=== PATIENT | female | born 1995 | race Caucasian/White ===

== ENCOUNTER 2019-02-07 10:46 | Inpatient (IN) | payer BC ==
[2019-02-07] MEDS ORDERED: LIDOCAINE 1% (MPF) 30 ML INJ INJ ×2 (11:30)
[2019-02-07] MEDS ORDERED: METHYLERGONOVINE 0.2 MG INJ IM ×2 (11:30)
[2019-02-07] MEDS ORDERED: CARBOPROST 250 MCG INJ IM ×2 (11:30)
[2019-02-07] MEDS ORDERED: MISOPROSTOL 200 MCG TAB PR ×2 (11:30)
[2019-02-07] MEDS ORDERED: OXYTOCIN 30 UNITS/LR 500 ML IV ×6 (11:30)
[2019-02-07] MEDS ORDERED: BUTORPHANOL 2 MG INJ IV ×2 (11:30)
[2019-02-07] MEDS: LACTATED RINGER'S 1,000 ML IV ×2 (12:10→23:04)
[2019-02-07] MEDS: MAGNESIUM SULFATE 4 GM/100 ML 100 ML IV (12:11)
[2019-02-07 12:25] LABS: ADD UMIC YES; UR ASCORBIC ACID NEGATIVE (NEGATIVE); UR BILIRUBIN (Dip) NEGATIVE (NEGATIVE); UR BLOOD (Dip) NEGATIVE (NEGATIVE); UR CLARITY SLIGHTLY CLOUDY (CLEAR); UR COLOR YELLOW (YELLOW); UR GLUCOSE (Dip) NEGATIVE (NEGATIVE); UR KETONES (Dip) NEGATIVE (NEGATIVE); UR LEUKOCYTE ESTERASE (Dip) TRACE Leu/ul (NEGATIVE); UR NITRITE (Dip) NEGATIVE (NEGATIVE); UR RBC 0 /HPF (0-5); UR SQUAMOUS EPITHELIAL CELL FEW /HPF (FEW); UR TOTAL PROTEIN (Dip) 1+ mg/dl (NEGATIVE); UR UROBILINOGEN (Dip) NEGATIVE (NEGATIVE); UR WBC 2 /HPF (0-5)
[2019-02-07 12:27] LABS: ADD MAN DIFF? NO
[2019-02-07 12:28] LABS: BASOPHIL # 0.1 10^3/ul (0.0-0.1); BASOPHILS % 0.6 % (0.0-2.0); EOSINOPHILS % 0.3 % (0.0-7.0); HEMATOCRIT 38.2 % (37.0-47.0); LYMPHOCYTES # 1.4 10^3/ul (0.8-2.9); LYMPHOCYTES % 13.9 % (15.0-51.0); MEAN CORPUSCULAR HEMOGLOBIN 29.1 pg (29.0-33.0); MEAN CORPUSCULAR VOLUME 85.7 fl (82.0-101.0); MEAN PLATELET VOLUME 10.9 fl (7.4-10.4); MONOCYTE # 0.5 10^3/ul (0.3-0.9); NEUTROPHIL # 7.8 10^3/ul (1.6-7.5); NEUTROPHILS % 79.5 % (39.0-77.0); PLATELET COUNT 216 10^3/UL (140-415); RED BLOOD COUNT 4.46 10^6/ul (4.20-5.40); RED CELL DISTRIBUTION WIDTH 13.2 % (11.5-14.5)
[2019-02-07 12:28] LABS: WHITE BLOOD COUNT 9.8 10^3/ul (4.8-10.8)
[2019-02-07] MEDS: MAGNESIUM SULFATE 20 GM/500 ML 500 ML IV ×2 (12:34→23:05)
[2019-02-07 12:47] LABS: INR 0.86; PROTIME 11.8 Sec (11.9-14.9); PT RATIO 0.9
[2019-02-07 12:48] LABS: PARTIAL THROMBOPLASTIN TIME 27.8 Sec (23.0-35.0)
[2019-02-07 12:53] LABS: URIC ACID 5.4 mg/dl (3.1-7.9)
[2019-02-07 12:54] LABS: ALANINE AMINOTRANSFERASE 21 IU/L (13-69); ALBUMIN 3.7 g/dl (3.3-4.9); ALBUMIN/GLOBULIN RATIO 1.23; ALKALINE PHOSPHATASE 162 IU/L (42-121); ANION GAP 5 (5-13); ASPARTATE AMINO TRANSFERASE 21 IU/L (15-46); BILIRUBIN,INDIRECT 0.4 mg/dl (0-1.1); BILIRUBIN,TOTAL 0.4 mg/dl (0.2-1.3); BLOOD UREA NITROGEN 7 mg/dl (7-20); CALCIUM 9.6 mg/dl (8.4-10.2); CARBON DIOXIDE 25 mmol/L (21-31); CHLORIDE 107 mmol/L (97-110); CREATININE 0.54 mg/dl (0.44-1.00); Estimated GFR > 60 mL/min (>60); GLUCOSE 77 mg/dl (70-220); POTASSIUM 4.1 mmol/L (3.5-5.1); SODIUM 137 mmol/L (135-144); TOTAL PROTEIN 6.7 g/dl (6.1-8.1)
[2019-02-07 13:24] LABS: HEPATITIS B SURFACE ANTIGEN NEGATIVE (NEGATIVE)
[2019-02-07] MEDS: MISOPROSTOL 50 MCG CAPSULE PO (13:36)
[2019-02-07 14:46] LABS: MAGNESIUM 1.9 mg/dl (1.7-2.5)
[2019-02-07] MEDS ORDERED: hydrALAzine 20 MG INJ (15:20)
[2019-02-07 15:24] LABS: RAPID PLASMA REAGIN NONREACTIVE (NR)
[2019-02-07] MEDS: hydrALAzine 20 MG INJ IV (15:24)
[2019-02-07 17:53] LABS: CREATININE,URINE RANDOM 37.73 mg/dl (20-320); PROTEIN/CREAT RATIO 1.66 RATIO
[2019-02-07 18:37] LABS: MAGNESIUM 4.8 mg/dl (1.7-2.5)
[2019-02-07] MEDS ORDERED: hydrALAzine 20 MG INJ IV (19:30)
[2019-02-07] MEDS: OXYTOCIN 30 UNITS/LR 500 ML IV (20:58)
[2019-02-07] MEDS: ACETAMINOPHEN 325 MG TAB PO (23:04)
[2019-02-08 03:34] LABS: ADD MAN DIFF? NO
[2019-02-08 03:54] LABS: INR 0.98; PROTIME 13.1 Sec (11.9-14.9)
[2019-02-08 03:55] LABS: PARTIAL THROMBOPLASTIN TIME 27.4 Sec (23.0-35.0)
[2019-02-08 04:01] LABS: WHITE BLOOD COUNT 15.2 10^3/ul (4.8-10.8)
[2019-02-08 04:01] LABS: BASOPHILS % 0.2 % (0.0-2.0); EOSINOPHILS % 0.1 % (0.0-7.0); HEMOGLOBIN 12.5 g/dl (12.0-16.0); LYMPHOCYTES % 6.7 % (15.0-51.0); MEAN CORPUSCULAR HEMOGLOBIN 29.8 pg (29.0-33.0); MEAN CORPUSCULAR HGB CONC 34.7 g/dl (32.0-37.0); MEAN CORPUSCULAR VOLUME 85.9 fl (82.0-101.0); MEAN PLATELET VOLUME 11.1 fl (7.4-10.4); MONOCYTE # 0.7 10^3/ul (0.3-0.9); MONOCYTES % 4.7 % (0.0-11.0); NEUTROPHIL # 13.3 10^3/ul (1.6-7.5); NEUTROPHILS % 87.7 % (39.0-77.0); PLATELET COUNT 224 10^3/UL (140-415); RED BLOOD COUNT 4.19 10^6/ul (4.20-5.40); RED CELL DISTRIBUTION WIDTH 13.5 % (11.5-14.5)
[2019-02-08 04:14] LABS: ALANINE AMINOTRANSFERASE 22 IU/L (13-69); ALBUMIN 3.3 g/dl (3.3-4.9); ALBUMIN/GLOBULIN RATIO 1.03; ALKALINE PHOSPHATASE 177 IU/L (42-121); ANION GAP 8 (5-13); ASPARTATE AMINO TRANSFERASE 19 IU/L (15-46); BILIRUBIN,INDIRECT 0.4 mg/dl (0-1.1); BILIRUBIN,TOTAL 0.4 mg/dl (0.2-1.3); BLOOD UREA NITROGEN 6 mg/dl (7-20); CALCIUM 7.9 mg/dl (8.4-10.2); CARBON DIOXIDE 22 mmol/L (21-31); CHLORIDE 103 mmol/L (97-110); CREATININE 0.46 mg/dl (0.44-1.00); Estimated GFR > 60 mL/min (>60); GLUCOSE 112 mg/dl (70-220); POTASSIUM 4.3 mmol/L (3.5-5.1); SODIUM 133 mmol/L (135-144); TOTAL PROTEIN 6.5 g/dl (6.1-8.1); URIC ACID 5.7 mg/dl (3.1-7.9)
[2019-02-08] MEDS: CEFAZOLIN 2 GM/50 ML (PMX) 50 ML IVPB (05:00)
[2019-02-08] MEDS ORDERED: ONDANSETRON 4 MG INJ (05:28)
[2019-02-08] MEDS ORDERED: morphine SULFATE/PF (10 MG/10 ML) INJ (05:28)
[2019-02-08] MEDS ORDERED: OXYTOCIN 30 UNITS/LR 500 ML IV ×2 (05:28→07:30)
[2019-02-08] MEDS ORDERED: OXYTOCIN 10 UNIT INJ ×2 (05:28→05:29)
[2019-02-08] MEDS ORDERED: METOCLOPRAMIDE 10 MG INJ (05:28)
[2019-02-08] MEDS ORDERED: DIPHENHYDRAMINE 50 MG INJ IV (07:00)
[2019-02-08] MEDS ORDERED: morphine 2 MG INJ IV ×2 (07:00)
[2019-02-08] MEDS ORDERED: EPHEDrine 25 MG/5 ML SYG (07:00)
[2019-02-08] MEDS ORDERED: NALOXONE (0.4 MG/ML) INJ IV (07:00)
[2019-02-08] MEDS ORDERED: ONDANSETRON 4 MG INJ IV (07:00)
[2019-02-08] MEDS ORDERED: EPHEDrine 25 MG/5 ML SYG IV (07:00)
[2019-02-08] MEDS ORDERED: MISOPROSTOL 200 MCG TAB PR (07:30)
[2019-02-08] MEDS ORDERED: METHYLERGONOVINE 0.2 MG TAB PO (07:30)
[2019-02-08] MEDS ORDERED: CARBOPROST 250 MCG INJ IM (07:30)
[2019-02-08] MEDS ORDERED: METHYLERGONOVINE 0.2 MG INJ IM (07:30)
[2019-02-08 08:01] LABS: MAGNESIUM 4.3 mg/dl (1.7-2.5)
[2019-02-08] MEDS: OXYTOCIN 30 UNITS/LR 500 ML IV (09:58)
[2019-02-08] MEDS: SENNA/DOCUSATE NA (8.6MG/50MG) TAB PO ×2 (10:00→21:40)
[2019-02-08] MEDS: LABETALOL HCL 20MG INJ IV (10:00)
[2019-02-08] MEDS: morphine SULFATE/PF (10 MG/10 ML) INJ SPINAL (10:00)
[2019-02-08] MEDS: MAGNESIUM SULFATE 20 GM/500 ML 500 ML IV ×2 (10:02→20:06)
[2019-02-08 12:15] LABS: MAGNESIUM 4.8 mg/dl (1.7-2.5)
[2019-02-08] MEDS: LACTATED RINGER'S 1,000 ML IV (17:28)
[2019-02-09 01:32] LABS: MAGNESIUM 4.9 mg/dl (1.7-2.5)
[2019-02-09] MEDS: MAGNESIUM SULFATE 20 GM/500 ML 500 ML IV (03:19)
[2019-02-09] MEDS: KETOROLAC 30 MG INJ IV (06:17)
[2019-02-09 06:48] LABS: ADD MAN DIFF? NO
[2019-02-09 06:55] LABS: BASOPHILS % 0.2 % (0.0-2.0); EOSINOPHILS % 0.1 % (0.0-7.0); HEMATOCRIT 30.7 % (37.0-47.0); HEMOGLOBIN 10.4 g/dl (12.0-16.0); LYMPHOCYTES # 1.2 10^3/ul (0.8-2.9); LYMPHOCYTES % 8.4 % (15.0-51.0); MEAN CORPUSCULAR HEMOGLOBIN 29.5 pg (29.0-33.0); MEAN CORPUSCULAR HGB CONC 33.9 g/dl (32.0-37.0); MEAN CORPUSCULAR VOLUME 87.2 fl (82.0-101.0); MEAN PLATELET VOLUME 10.7 fl (7.4-10.4); MONOCYTE # 0.7 10^3/ul (0.3-0.9); MONOCYTES % 4.8 % (0.0-11.0); NEUTROPHIL # 12.3 10^3/ul (1.6-7.5); NEUTROPHILS % 85.9 % (39.0-77.0); PLATELET COUNT 169 10^3/UL (140-415); RED BLOOD COUNT 3.52 10^6/ul (4.20-5.40); RED CELL DISTRIBUTION WIDTH 13.6 % (11.5-14.5)
[2019-02-09 06:55] LABS: WHITE BLOOD COUNT 14.3 10^3/ul (4.8-10.8)
[2019-02-09 07:17] LABS: ANION GAP 2 (5-13); BLOOD UREA NITROGEN 4 mg/dl (7-20); CALCIUM 7.4 mg/dl (8.4-10.2); CARBON DIOXIDE 29 mmol/L (21-31); CHLORIDE 104 mmol/L (97-110); CREATININE 0.53 mg/dl (0.44-1.00); Estimated GFR > 60 mL/min (>60); GLUCOSE 99 mg/dl (70-220); SODIUM 135 mmol/L (135-144)
[2019-02-09] MEDS: SENNA/DOCUSATE NA (8.6MG/50MG) TAB PO (09:15)
[2019-02-09] MEDS: IBUPROFEN 800 MG TAB PO (15:36)
[2019-02-09] MEDS: HYDROCODONE/APAP (5/325) TAB PO (15:37)
[2019-02-09] MEDS: BISACODYL 10 MG SUPP PR (16:34)
[2019-02-09] MEDS ORDERED: MAGNESIUM HYDROXIDE 30ML CUP PO (17:00)
[2019-02-09] MEDS: LANOLIN HPA 1 PKT TOP ×2 (17:29)
[2019-02-10] MEDS: SENNA/DOCUSATE NA (8.6MG/50MG) TAB PO ×3 (00:38→21:04)
[2019-02-10] MEDS: IBUPROFEN 800 MG TAB PO ×3 (00:38→21:03)
[2019-02-10] MEDS: HYDROCODONE/APAP (5/325) TAB PO ×3 (00:39→21:04)
[2019-02-10] MEDS: BISACODYL 10 MG SUPP PR (06:30)
[2019-02-11 08:20] LABS: ADD MAN DIFF? NO
[2019-02-11 08:23] LABS: WHITE BLOOD COUNT 9.7 10^3/ul (4.8-10.8)
[2019-02-11 08:23] LABS: BASOPHILS % 0.4 % (0.0-2.0); EOSINOPHILS # 0.3 10^3/ul (0.0-0.5); EOSINOPHILS % 2.9 % (0.0-7.0); HEMATOCRIT 31.3 % (37.0-47.0); HEMOGLOBIN 10.2 g/dl (12.0-16.0); LYMPHOCYTES # 1.6 10^3/ul (0.8-2.9); LYMPHOCYTES % 16.6 % (15.0-51.0); MEAN CORPUSCULAR HEMOGLOBIN 29.1 pg (29.0-33.0); MEAN CORPUSCULAR HGB CONC 32.6 g/dl (32.0-37.0); MEAN CORPUSCULAR VOLUME 89.4 fl (82.0-101.0); MEAN PLATELET VOLUME 10.4 fl (7.4-10.4); MONOCYTE # 0.5 10^3/ul (0.3-0.9); MONOCYTES % 4.6 % (0.0-11.0); NEUTROPHIL # 7.3 10^3/ul (1.6-7.5); NEUTROPHILS % 74.9 % (39.0-77.0); PLATELET COUNT 235 10^3/UL (140-415); RED CELL DISTRIBUTION WIDTH 13.5 % (11.5-14.5)
[2019-02-11] MEDS: MEASLES,MUMPS,RUBELLA VACCINE INJ SC* (08:52)
[2019-02-11] MEDS: SENNA/DOCUSATE NA (8.6MG/50MG) TAB PO (08:58)
[2019-02-11] MEDS: HYDROCODONE/APAP (5/325) TAB PO (11:06)
[2019-02-11] MEDS: DIPHTH/TET/ACEL PERTUSS (ADULT) 0.5 ML VIAL IM* (12:21)
== END 2019-02-11 12:50 | disposition home or self-care (01) | DRG 788 ==
LOC: OBT 10:46 → L-D 02-08 05:28 → OBT 11:15 → L-D 11:15 → PP1 02-08 09:48
PROC: 10D00Z1 Extraction of Products of Conception, Low, Open Approach (ICD-10-PCS; principal; 2019-02-08 05:30)
PROC: 3E033VJ Introduction of Other Hormone into Peripheral Vein, Percutaneous Approach (ICD-10-PCS; 2019-02-08 05:30)
DX: O62.0 Primary inadequate contractions (principal); O13.4 Gestational [pregnancy-induced] hypertension without significant proteinuria, complicating childbirth; Z3A.37 37 weeks gestation of pregnancy; Z37.0 Single live birth
CPT/HCPCS: 76815; 80048; 80053; 81001; 81003; 82570; 83735; 84560; 85025; 85384; 85610; 85730; 86592; 86850; 86900; 86901; 87340; 88307; 90715